=== PATIENT | male | born 1970 | race African-American/Black ===

== ENCOUNTER 2022-08-21 02:24 | Emergency (ER) | payer BC ==
[2022-08-21 02:33] VITALS: BMI 22.4
[2022-08-21] MEDS ORDERED: ALBUTEROL SO4 2.5/IPRATROPIUM 0.5 INH SOL 3 ML VIAL.NEB. NEB ONE (02:40)
[2022-08-21] MEDS ORDERED: methylPREDNISolone NA SUCC 125 MG/2 ML VIAL IVPUSH ONE (02:43)
[2022-08-21] MEDS ORDERED: methylPREDNISolone NA SUCC 125 MG/2 ML VIAL ONE (02:43)
[2022-08-21] MEDS: ALBUTEROL SO4 2.5/IPRATROPIUM 0.5 INH SOL 3 ML VIAL.NEB. NEB SCH ×3 (02:53→04:14)
[2022-08-21 03:19] LABS: BASO % 0.2 % (0-2.0); EOS % 0.5 % (0-4.5); HEMATOCRIT 47.7 % (35.4-49); HEMOGLOBIN 15.4 GM/dL (11.7-16.9); LYMPH % 31.2 % (8-40); MCH 28.2 pg (25.7-33.7); MCHC 32.3 g/dl (32.0-35.9); MEAN CELL VOLUME 87.2 fl (80-96); MEAN PLT VOLUME 7.9 fl (7.5-11.1); MONO % 5.6 % (3.8-10.2); NEUT % 62.5 % (42.8-82.8); PLATELET COUNT 186 10^3/uL (134-434); RBC 5.47 M/mm3 (4.00-5.60); RDW 13.3 % (11.9-15.9); WHITE BLOOD COUNT 7.1 K/mm3 (4.0-10.0)
[2022-08-21 03:33] LABS: ALBUMIN 3.6 g/dl (3.4-5.0)
[2022-08-21 03:38] LABS: BILIRUBIN,TOTAL 0.1 mg/dL (0.2-1)
[2022-08-21 05:03] VITALS: BP 117/67; PULSE 86; RESP 18; TEMP 97.6
== END 2022-08-21 06:34 | disposition home or self-care (01) ==
LOC: JER 02:24
PROC: 3E033NZ Introduction of Analgesics, Hypnotics, Sedatives into Peripheral Vein, Percutaneous Approach (ICD-10-PCS; principal; 2022-08-21)
PROC: 3E033GC Introduction of Other Therapeutic Substance into Peripheral Vein, Percutaneous Approach (ICD-10-PCS; 2022-08-21)
PROC: 3E0F7GC Introduction of Other Therapeutic Substance into Respiratory Tract, Via Natural or Artificial Opening (ICD-10-PCS; 2022-08-21)
DX: J45.909 Unspecified asthma, uncomplicated (principal)
CPT/HCPCS: 0241U-QW; 36415; 71045-TC-FY; 80053; 84484; 85025; 93005; 93010; 99284-25

== ENCOUNTER 2022-12-17 19:12 | Emergency (ER) | payer BC ==
[2022-12-17 19:26] VITALS: BP 131/58; PULSE 93; RESP 20; TEMP 98; BMI 22.1
[2022-12-17] MEDS ORDERED: predniSONE 20 MG TABLET (UD) PO ONE (20:10)
[2022-12-17] MEDS ORDERED: predniSONE 20 MG TABLET (UD) ONE (20:15)
== END 2022-12-17 21:16 | disposition home or self-care (01) ==
LOC: JER 19:12 → JERFT 19:12
DX: J45.21 Mild intermittent asthma with (acute) exacerbation (principal)
CPT/HCPCS: 0241U-QW; 71046-TC-FY; 99284-25

== ENCOUNTER 2024-10-06 19:40 | Emergency (ER) | payer BC ==
[2024-10-06 19:44] VITALS: BP 128/76; PULSE 104; RESP 18; TEMP 101.7; BMI 22.4
[2024-10-06] MEDS ORDERED: predniSONE 20 MG TABLET (UD) ONE (20:59)
[2024-10-06] MEDS ORDERED: IBUPROFEN 600 MG TABLET (FP) PO ONE (20:59)
[2024-10-06] MEDS ORDERED: ALBUTEROL SO4 2.5/IPRATROPIUM 0.5 INH SOL 3 ML VIAL.NEB. NEB ONE (20:59)
[2024-10-06] MEDS: predniSONE 20 MG TABLET (UD) PO ONE (21:12)
[2024-10-06] MEDS: ALBUTEROL SO4 2.5/IPRATROPIUM 0.5 INH SOL 3 ML VIAL.NEB. NEB SCH (21:12)
[2024-10-06] MEDS: IBUPROFEN 600 MG TABLET (FP) PO ONE (21:12)
[2024-10-06] MEDS ORDERED: OSELTAMIVIR PHOSPHATE 75 MG CAPSULE ONE (22:24)
[2024-10-06] MEDS: OSELTAMIVIR PHOSPHATE 75 MG CAPSULE PO ONE (22:29)
== END 2024-10-06 22:29 | disposition home or self-care (01) ==
LOC: JERFT 19:40
PROC: 3E0F7GC Introduction of Other Therapeutic Substance into Respiratory Tract, Via Natural or Artificial Opening (ICD-10-PCS; principal; 2024-10-06)
DX: J10.1 Influenza due to other identified influenza virus with other respiratory manifestations (principal); J45.901 Unspecified asthma with (acute) exacerbation; R05.9 Cough, unspecified; Z20.822 Contact with and (suspected) exposure to COVID-19
CPT/HCPCS: 0241U-QW; 71046-TC-FY; 99284-25